=== PATIENT | female | born 1965 ===

== ENCOUNTER 2018-09-05 07:18 | Day surgery (SDC) | payer MEDICAID ==
[2018-07-03 17:37] VITALS: BMI 40.7
[2018-09-05] MEDS ORDERED: Lidocaine Hydrochloride 5 ML INJ ONE (10:29)
[2018-09-05] MEDS ORDERED: Propofol 10 mg/ml Inj (20 ML) ONE (10:29)
[2018-09-05] MEDS ORDERED: Lactated Ringer's 1,000 ML IV ONE (10:31)
[2018-09-05 14:56] VITALS: TEMP 97.9
[2018-09-05 15:04] VITALS: RESP 18; O2SAT 100
[2018-09-05 15:12] VITALS: BP 119/65; PULSE 78
== END 2018-09-05 15:35 | disposition home or self-care (01) ==
LOC: C.ENDO 07:18
PROVIDERS: ATTEND Internal Medicine Gastroenterology
DX: K21.9 Gastro-esophageal reflux disease without esophagitis (principal); K29.50 Unspecified chronic gastritis without bleeding; I10 Essential (primary) hypertension; E11.9 Type 2 diabetes mellitus without complications; J45.909 Unspecified asthma, uncomplicated; E66.9 Obesity, unspecified
CPT/HCPCS: 43239; 82948; 84703; 88305; 88312; 88342; J2001; J2704; J7120